=== PATIENT | female | born 1995 | race Caucasian/White ===

== ENCOUNTER 2019-12-20 15:47 | Outpatient (RCR) | payer OTHER, MEDICAID, SELFPAY | END 2020-03-19 23:59 | disposition home or self-care (01) | LOC: ANHLAB 15:47 | PROVIDERS: Visit Provider Advanced Practice Midwife | DX: O46.90 Antepartum hemorrhage, unspecified, unspecified trimester (principal); Z3A.00 Weeks of gestation of pregnancy not specified | CPT/HCPCS: 36415; 85461 ==

== ENCOUNTER 2020-06-17 17:44 | Observation (INO) | payer OTHER, MEDICAID, SELFPAY ==
[2020-06-17 18:01] VITALS: RESP 20; TEMP 37.2
[2020-06-17 19:00] VITALS: BMI 30.6
--- NOTE | 2020-06-17 20:04 | OBADM ---
This patient, Nicki Rubio, admitted to the OB room Labor/Delivery/Recovery 106 for observation. Patient/family oriented to hospital policies and general routines including ID bracelet, bed and alarms, visiting hours, pain management, procedures, bathroom and other care routines, personal items, smoking policy, room service/diet, and visiting hours. Patient/Family are encouraged to report perceived risks to care and to ask questions if they do not understand what they are told or what they should do.
--- NOTE | 2020-06-19 08:10 | PM.OBTRLD ---
OB - Triage/Final Diagnosis Visit Information Comments/Additional reasons for admission: I have assessed the risk for this patient, Nicki Rubio, and determined that she would benefit from observation care. Final Diagnosis (1) False labor: Code(s): O47.9 - False labor, unspecified Status: Acute
== END 2020-06-17 19:47 | disposition home or self-care (01) ==
PROVIDERS: Admitting Provider Obstetrics & Gynecology; Visit Provider Obstetrics & Gynecology
DX: O47.9 False labor, unspecified (principal); Z3A.00 Weeks of gestation of pregnancy not specified
CPT/HCPCS: 84112; G0378; G0379

== ENCOUNTER 2020-06-27 19:48 | Observation (INO) | payer OTHER, MEDICAID, SELFPAY ==
[2020-06-27 20:00] VITALS: BMI 32.1
--- NOTE | 2020-06-27 20:00 | PC.NURSE ---
States contractions since membrane sweep in office today. Contractions increased in intensity since 1730/. SEE obix
--- NOTE | 2020-06-27 22:00 | OBADM ---
This patient, Nicki Rubio, admitted to the OB room Labor/Delivery/Recovery 105 for observation. Patient/family oriented to hospital policies and general routines including ID bracelet, bed and alarms, visiting hours, pain management, procedures, bathroom and other care routines, personal items, smoking policy, room service/diet, and visiting hours. Patient/Family are encouraged to report perceived risks to care and to ask questions if they do not understand what they are told or what they should do.
--- NOTE | 2020-06-27 22:20 | PC.NURSE ---
Pt made no cervical change after 2 hours. Pt rates contraction as 5 throughout visit but states they are like period cramps she has had in past. Pt has been able to talk on phone and with sig. other. Discussed contraction increase in intensity and when to return. Pt verbalized understanding.
== END 2020-06-27 22:20 | disposition home or self-care (01) ==
PROVIDERS: Admitting Provider Obstetrics & Gynecology; PCP Advanced Practice Midwife; Visit Provider Obstetrics & Gynecology
DX: O47.9 False labor, unspecified (principal); Z3A.00 Weeks of gestation of pregnancy not specified
CPT/HCPCS: G0378; G0379

== ENCOUNTER 2020-06-29 20:27 | Outpatient (CLI) | payer OTHER, MEDICAID, SELFPAY ==
[2020-06-29 20:50] VITALS: TEMP 36.9
[2020-06-29 21:18] LABS: Basophils Percent Auto 0.3 % (0.2-1.2); Eosinophils Percent Auto 0.5 % (0-4.4); Hematocrit 31.2 % (37.0-47.0); Immature Granulocyte Absolute 0.05 K/mm3 (0.00-0.031); Immature Granulocyte Percent A 0.6 % (0-0.5); Lymphocytes Absolute Auto 2.16 K/mm3 (0.9-3.2); Lymphocytes Percent Auto 27.1 % (18.3-44.2); Mean Corpuscular HGB Conc 32.1 g/dl (32-36); Mean Corpuscular Hemoglobin 24.7 pg (26-34); Mean Platelet Volume 10.6 fl (7.4-10.4); Monocytes Absolute Auto 0.7 K/mm3 (0.1-0.6); Monocytes Percent Auto 9.2 % (2.6-8.5); Neutrophils Percent Auto 62.3 % (45.5-73.1); Platelet Count Result 292 k/mm3 (150-375); Red Blood Count 4.05 M/mm3 (4.2-5.4); Red Cell Distribution Width 13.8 % (11.5-14.5)
[2020-06-29 21:25] LABS: Add Urine Microscopic? YES; Amorphous Sediment Urine Few; Appearance Urine Cloudy (Clear); Bacteria Urine Trace /hpf; Bilirubin Urine Negative (Negative); Blood Urine Negative (Negative); Color Urine Yellow (Yellow); Glucose Urine UA Negative (Negative); Ketones Urine Negative (Negative); Leukocyte Esterase Ur 3+ LEU/UL (NEGATIVE); Mucus Urine Few /lpf; Nitrate Urine Negative (Negative); Protein Urine 1+ mg/dL (Negative); Specific Grav Ur 1.019 (1.001-1.035); Squamous Epithelial Cell Urine Many /hpf (Few); WBC Urine 21-30 /hpf (0-3)
[2020-06-29 21:27] LABS: Alanine Aminotransferase 9 U/L (4-35); Albumin Level 3.3 g/dL (3.5-5.1); Alkaline Phosphatase 138 U/L (38-126); Anion Gap 5 mmol/L (8-16); Aspartate Amino Transferase 14 U/L (14-36); Bilirubin,Total 0.4 mg/dL (0.2-1.3); Blood Urea Nitrogen 6 mg/dL (7-17); Calcium 8.9 mg/dL (8.4-10.2); Carbon Dioxide 23 mmol/L (22-30); Chloride 107 mmol/L (98-107); Estimated Glomerular Filt Rate > 60; Glucose 118 mg/dL (65-105); Potassium 3.5 mmol/L (3.4-5.0); Sodium 135 mmol/L (137-145); Uric Acid 2.4 mg/dL (2.5-7.5)
== END 2020-06-29 22:35 | disposition home or self-care (01) ==
PROVIDERS: PCP Advanced Practice Midwife; Visit Provider Obstetrics & Gynecology
DX: O13.3 Gestational [pregnancy-induced] hypertension without significant proteinuria, third trimester (principal); Z3A.39 39 weeks gestation of pregnancy
CPT/HCPCS: 36415; 59025; 80053; 81001; 84550; 85025; 87086; 87088

== ENCOUNTER 2020-07-01 16:45 | Outpatient (RCR) | payer OTHER, MEDICAID, SELFPAY ==
[2020-05-30 17:25] VITALS: BP 112/62; PULSE 82
--- NOTE | ~2020-07-01 | US_ITS ---
EXAMINATION: US OB BPP wo non-stress DATE: 05/30/2020 17:24 INDICATION: Gestational diabetes, third trimester TECHNIQUE: Real-time pelvic ultrasound was performed. The interpreting radiologist was not present fo r the study. COMPARISON: None. FINDINGS: There is a single living fetus in vertex presentation. The placenta is anterior. heart rate is 154 beats per minute (bpm). Biophysical profile performed by the technologist: breathing (30 sec sustained breathing in 30 minutes): 2 out of 2 movement (3 gross body movements in 30 minutes): 2 out of 2 tone (one episode of popmkoa-kzuovwvbd-fjhihxb limb movement): 2 out of 2 Amniotic fluid pocket (2 cm): 2 out of 2 Total score: 8 out of 8 IMPRESSION: 1. Single living fetus in vertex presentation. 2. Biophysical profile 8 out of 8. Reviewed, dictated and finalized at location A. STICS ENGINEERING MANAGER
--- NOTE | ~2020-07-01 | US_ITS ---
US OB BPP wo non-stress DATE: 07/01/2020 17:59 INDICATION: Nonreactive nonstress test in office TECHNIQUE: Real-time imaging and Doppler analysis COMPARISON: 05/30/2020 obstetrical ultrasound with biophysical profile FINDINGS: Live rawls intrauterine gestation, fetus in vertex presentation, longitudinal lie. Ante rior placenta. heart rate of 150 bpm. BIOPHYSICAL PROFILE reported by graphics edit technician: breathin out of 2 movement: 2 out of 2 tone: 2 out of 2 Amniotic fluid pocket: 2 out of 2; a 4.1 cm deep amniotic fluid pocket is noted. Total score: 8 out of 8 IMPRESSION: Normal biophysical profile score of 8 out of 8 Reviewed, dictated and finalized at Location A. Reviewed, dictated and finalized at location A. NTURE THERAPIST
[2020-07-01 18:30] VITALS: BP 115/67; PULSE 81
== END 2020-07-03 07:33 | disposition home or self-care (01) ==
LOC: ANHOBOP 16:45
PROVIDERS: Family Provider Pediatrics; Visit Provider Obstetrics & Gynecology
DX: O24.419 Gestational diabetes mellitus in pregnancy, unspecified control (principal); Z3A.34 34 weeks gestation of pregnancy; Z3A.38 38 weeks gestation of pregnancy
CPT/HCPCS: 59025; 76819

== ENCOUNTER 2020-07-02 06:56 | Inpatient (IN) | payer OTHER, MEDICAID, SELFPAY ==
[2020-07-02] VITALS (74 sets, daily range): BP systolic 89–145; BP diastolic 40–111; PULSE 61–226; RESP 16–18; TEMP 36.4–37.3; O2SAT 97–100; BMI 32.1
--- OUTSIDE RECORDS SUMMARY | 2020-07-02 07:01 | XMS_ITS | Encounter Summary ---
:1995 Author Reason for Visit None recorded. Assessment and Plan 1. Gestational diabetes mellitus , class A>2< ? non-stress test Discussion Note: None recorded.Patient educational handouts: No information available. Plan of Care Reminders Provider Appointments None ? ? recorded. Lab None ? ? recorded. Referral None ? ? recorded. Procedures None ? ? recorded. Surgeries None ? ? recorded. Imaging 06/20/2020 [place] Non-stress Test Medications Name Start Date ? ? Humulin N NPH U-100 Insulin (isophane susp) 100 unit/m L subcutaneous ? insulin syringe/0.3ml/31g x 5/16 31g x 5/16 0.3 ml misc ? OneTouch Delica Plus Lancet 33 gauge ? OneTouch Ultra Blue Test Strip ? OneTouch Ultra2 Meter ? ? Medications Administered None recorded. Vitals None recorded. Results Lab Results None recorded. Allergies Code Code System Name Reaction Severity Onset NKDA ? ? ? Problems Name Status Onset Date Source ? Active 01/17/2020 ? Procedures Date
--- OUTSIDE RECORDS SUMMARY | 2020-07-02 07:01 | XMS_ITS ---
:1995 Author Care Team Providers Name Role Phone Kath Esteves Primary Care Provider Unavailable Allergies Code Code System Name Reaction Severity Status Onset NKDA ? Medications Name Status Start Date Stop Date ? ? Flagyl 500 mg tablet Completed ? 02/12/2020 take 4 pills by oral route all at once Humulin N NPH U-100 Insulin Active ? Not available (isophane susp) 100 unit/mL subcutaneous insulin syringe/0.3ml/31g x Active ? Not available 09/22 31g x 09/22 0.3 ml misc ketoconazole 2 % topical cream Completed ? 1 06/26/2019 APPLY TO THE AFFECTED AREA(S) BY TOPICAL ROUTE ONCE DAILY Metrogel Vaginal 0.75 % Completed 01/17/2016 03/09/20 16 insert 1 applicatorful by vaginal route every day at bedtime f or 5 nights NuvaRing 0.12 mg-0.015 mg/24 hr vaginal Completed 03/17/20 18 09/15/2018 insert 1 vaginal ring by vaginal route every month leave in place for 3 weeks, remove for 1 week OneTouch Delica Plus Lancet 33 Active ? N ot available gauge OneTouch Ultra Blue Test Strip Active ? N ot available OneTouch Ultra2 Meter Active ? Not availa ble Ortho Tri-Cyclen (28) 0.18 mg(7)/0.215 mg(7)/0.25 mg(7)-35 m cg tablet Completed 10/19/2012 10/12/2013 take 1 tablet by oral route every day Ortho-Cyclen (28) 0.25 mg-35 mcg tablet Completed 09/16/1906/19/2020 take 1 tablet by oral route every day Active ? N
--- OUTSIDE RECORDS SUMMARY | 2020-07-02 07:01 | XMS_ITS | Encounter Summary ---
:1995 Author Reason for Visit OB visit 37w2d Assessment and Plan 1. Routine care Additional precautionary measu res were taken to minimize potential exposure to the Covid-19 virus during this patien t?s visit, including available hand tool design engineer upon arrive, temperature check and being asked a series of screening questions. All staff wore face coverings during this en counter, as well as provided additional cleaning and sanitizing of all surfaces, including countertops, pens, chairs, door handles, light switches, etc, prior to a nd following the patient?s visit. Discussion Note: None recorded.Patient educational handouts: No information available. Plan of Care Reminders Provider Appointments None ? ? recorded. Lab None ? ? recorded. Referral None ? ? recorded. Procedures None ? ? recorded. Surgeries None ? ? recorded. Imaging None ? ? recorded. Medications Name Start Date ? ? Humulin N NPH U-100 Insulin (isophane susp) 100 unit/m L subcutaneous ? insulin syringe/0.3ml/31g x 16 31g x 516 0.3 ml misc ? OneTouch Delica Plus Lancet 33 gauge ? OneTouch Ultra Blue Test Strip ? OneTouch Ultra2 Meter ? ? Medications Administered None recorded. Vitals Height Weight BMI Blood Pr
--- OUTSIDE RECORDS SUMMARY | 2020-07-02 07:01 | XMS_ITS | Encounter Summary ---
:1995 Author Reason for Visit None recorded. Assessment and Plan 1. condition affecting obs tetrical care of mother ? US, obstetric, biophysical profile + non-stress test Discussion Note: None recorded.Patient educational handouts: No information available. Plan of Care Reminders Provider Appointments None recorded. ? ? Lab None recorded. ? ? Referral None recorded. ? ? Procedures None recorded. ? ? Surgeries None recorded. ? ? Imaging US, Obstetric, [facility] Biophysical Profile + 06/20/2020 Non-stress Test Medications Name Start Date ? [...]
--- OUTSIDE RECORDS SUMMARY | 2020-07-02 07:01 | XMS_ITS | Encounter Summary ---
:1995 Author Reason for Visit OB visit 38w2d Assessment and Plan 1. Routine care Additional precautionary measu res were taken to minimize potential exposure to the Covid-19 virus during this patien t?s visit, including available hand mediator upon arrive, temperature check and being asked [...] unit/m L subcutaneous ? insulin syringe/0.3ml/31g x 09/22 31g x 516 0.3 ml misc ? OneTouch Delica Plus Lancet 33 gauge ? OneTouch Ultra Blue Test Strip ? OneTouch Ultra2 Meter ? ? Medications Administered None recorded. Vitals Height Weight BMI Blood Pr
--- OUTSIDE RECORDS SUMMARY | 2020-07-02 07:01 | XMS_ITS | Encounter Summary ---
[...] recorded. Surgeries None ? ? recorded. Imaging 06/13/2020 [place] Non-stress Test Medications Name Start Date ? [...]
--- OUTSIDE RECORDS SUMMARY | 2020-07-02 07:01 | XMS_ITS | Encounter Summary ---
:1995 Author Reason for Visit OB visit 36w2d GBS today Assessment and Plan 1. Routine care Additional precautionary measu res were taken to minimize potential exposure to the Covid-19 virus during this patien t?s visit, including available hand commercial finance manager upon arrive, temperature check and being asked [...] ? insulin syringe/0.3ml/31g x 16 31g x 16 0.3 ml misc ? OneTouch Delica Plus Lancet 33 gauge ? OneTouch Ultra Blue Test Strip ? OneTouch Ultra2 Meter ? ? Medications Administered None recorded. Vitals Height Weight BMI
--- OUTSIDE RECORDS SUMMARY | 2020-07-02 07:01 | XMS_ITS | Encounter Summary ---
[...] recorded. Surgeries None ? ? recorded. Imaging 06/24/2020 [place] Non-stress Test Medications Name Start Date ? [...]
--- OUTSIDE RECORDS SUMMARY | 2020-07-02 07:01 | XMS_ITS | Encounter Summary ---
[...] recorded. Surgeries None ? ? recorded. Imaging 06/27/2020 [place] Non-stress Test Medications Name Start Date ? [...]
--- OUTSIDE RECORDS SUMMARY | 2020-07-02 07:01 | XMS_ITS | Encounter Summary ---
[...] recorded. Surgeries None ? ? recorded. Imaging 07/01/2020 [place] Non-stress Test Medications Name Start Date ? [...]
--- OUTSIDE RECORDS SUMMARY | 2020-07-02 07:02 | XMS_ITS | Encounter Summary ---
:1995 Author Reason for Visit OB visit 29W2D Assessment and Plan 1. Routine care Discussion Note: None recorded.Patient educational handouts: No [...] None recorded. Vitals Height Weight BMI Blood Pressure 5 ft 5 in 183 lbs 30.5 kg/m2 113/75 mm[Hg] Results Lab Results None recorded. Allergies Code Code System Name Reaction Severity Onset NKDA ? ? ? Problems Name Status Onset Date Source ? Active 01/17/2020 ? Procedures None
--- OUTSIDE RECORDS SUMMARY | 2020-07-02 07:02 | XMS_ITS | Encounter Summary ---
:1995 Author Reason for Visit OB visit OB 35wir2h EDC 07/09/2020 LMP 09/08/2019 Assessment and Plan Assessment Note Patient is __27_weeks . Dis cussed plan. 1. Routine care Discussion Note: None recorded.Patient [...] BMI Blood Pressure 5 ft 5 in 182 lbs 30.3 kg/m2 130/69 mm[Hg] Results Lab Results None recorded. Allergies Code Code System Name Reaction Severity Onset NKDA ? ? ? Problems Name Status O
--- OUTSIDE RECORDS SUMMARY | 2020-07-02 07:02 | XMS_ITS | Encounter Summary ---
[...] recorded. Surgeries None ? ? recorded. Imaging 06/06/2020 [place] Non-stress Test Medications Name Start Date ? [...]
--- OUTSIDE RECORDS SUMMARY | 2020-07-02 07:02 | XMS_ITS | Encounter Summary ---
:1995 Author Reason for Visit OB visit OB 74mol0w EDC 07/09/2020 LMP 09/08/2019 Assessment and Plan Assessment Note Patient is __32_weeks . Dis cussed plan. 1. Routine care [...] unit/m L subcutaneous ? insulin syringe/0.3ml/31g x /16 31g x 5/16 0.3 ml misc ? OneTouch Delica Plus Lancet 33 gauge ? OneTouch Ultra Blue Test Strip ? OneTouch Ultra2 Meter ? ? Medications Administered None recorded. Vitals Height Weight BMI Blood Pressure 5 ft 5 in 182 lbs 30.3 kg/m2 114/65 mm[Hg] Results Lab Results None recorded. Allergies Code Code System Name Reaction Severity Onset NKDA ? ? ? Problems Name Status O
--- OUTSIDE RECORDS SUMMARY | 2020-07-02 07:02 | XMS_ITS | Encounter Summary ---
:1995 Author Reason for Visit None recorded. Assessment and Plan 1. Gestational diabetes mellitus , class A>2< Pt here for insulin teaching p er AD. Pt to start on 5u NPH @ HS. Reviewed insulin with pt and showed pt how to hugo d insulin syringe. Pt instructed how to draw up insulin and where to inject. Pt infor med to buy alcohol swabs to clean vial/skin before injection. Demonstrated to pt how to draw up 5u of insulin. Pt properly completed a return demonstration on how to draw up 5u of insulin and also demonstrated how to draw up different un its of insulin if we end up increasing the dose. Pts questions were answered and pt verbalized understanding and feels comfortable drawing up/injection insulin . Pt will call with any questions. Pt is having issues with insurance getting rxs covered. Called and spoke with Raman at [facility] to see what is wrong and he sa ys that the is incorrect and isn't going through r/t this. Pt is to contract [employer] and correct this so we can send rx. Pt states that when she spoke with Jose koehler before they told her they don't accept her insurance and to try [facility]. Pt wants to see if we send insulin/syringes & glucometer, test stri ps, and lancets to [facility] if it will go through there. Rxs all called into [facility] in [facility] on [facility]. Pt to call with problems getting rxs. Pt will call us on 05/06/2020 to review sugars as we are closed on 05/02 & 05/03/2020. Pt verbalized und erstanding. cecily, CARMINE Discussion Note: None recorded.Patient educational handouts: No information available. Plan of Care Reminders Provider Appointments None ? ? recorded. Lab None ? ? recorded. Referral None
--- OUTSIDE RECORDS SUMMARY | 2020-07-02 07:02 | XMS_ITS | Encounter Summary ---
:1995 Author Reason for Visit None recorded. Assessment and Plan 1. Gestational diabetes mellitus , class A>1< Pt here for diet teaching. Di et teaching completed. Carb counts for meals and snacks reviewed. Pt instructed on how to read nutritional labels and instructed on researching carb counts for me als/snacks. Pt instructed on blood sugar level goals and importance of checking blood sugar and keeping blood sugar log. Pt instructed on high protein low carb diet and provided with food recommendation s. Pt given website to ADA website to lo ok up nutrition ideas. Pt has OB appt on 04/25/2020 and will f/u on BS at that time. Waiting on schd for next year to be opened up at 4 to schd out the rest of pt s NSTs. Pt verbalized understanding. alfredo kowalski RN Discussion Note: None recorded.Patient educational handouts: No [...] ? insulin syringe/0.3ml/31g x 16 31g x 5/16 0.3 ml misc ? OneTouch Delica Plus Lancet 33 gauge ? OneTouch Ultra Blue Test Strip ? OneTouch Ultra2 Meter ? ? Medications Administered None recorded. Sarah
--- OUTSIDE RECORDS SUMMARY | 2020-07-02 07:02 | XMS_ITS | Encounter Summary ---
:1995 Author Reason for Visit None recorded. Assessment and Plan 1. Gestational diabetes mellitus , class A>2< ? US, obstetric, follow-up Discussion Note: None recorded.Patient educational handouts: No information available. Plan of Care Reminders Provider Appointments None ? ? recorded. Lab None ? ? recorded. Referral None ? ? recorded. Procedures None ? ? recorded. Surgeries None ? ? recorded. Imaging US, 05/16/2020 [place] [facility], Follow-up Medications Name Start Date ? ? Humulin [...]
--- OUTSIDE RECORDS SUMMARY | 2020-07-02 07:02 | XMS_ITS | Encounter Summary ---
[...] recorded. Surgeries None ? ? recorded. Imaging 05/30/2020 [place] Non-stress Test Medications Name Start Date ? [...]
--- OUTSIDE RECORDS SUMMARY | 2020-07-02 07:02 | XMS_ITS | Encounter Summary ---
[...] recorded. Surgeries None ? ? recorded. Imaging 06/10/2020 [place] Non-stress Test Medications Name Start Date ? [...]
--- OUTSIDE RECORDS SUMMARY | 2020-07-02 07:02 | XMS_ITS | Encounter Summary ---
[...] recorded. Surgeries None ? ? recorded. Imaging 05/27/2020 [place] Non-stress Test Medications Name Start Date ? [...]
--- OUTSIDE RECORDS SUMMARY | 2020-07-02 07:02 | XMS_ITS | Encounter Summary ---
:1995 Author Reason for Visit OB visit Assessment and Plan 1. Routine care Discussion [...] ft 5 in 182 lbs 30.3 kg/m2 134/64 mm[Hg] Results Lab Results None recorded. Allergies Code Code System Name Reaction Severity Onset NKDA ? ? ? Problems Name Status Onset Date Source ? Active 01/17/2020 ? Procedures Date Name
--- OUTSIDE RECORDS SUMMARY | 2020-07-02 07:02 | XMS_ITS | Encounter Summary ---
[...] recorded. Surgeries None ? ? recorded. Imaging 05/20/2020 [place] Non-stress Test Medications Name Start Date ? [...]
--- OUTSIDE RECORDS SUMMARY | 2020-07-02 07:02 | XMS_ITS | Encounter Summary ---
[...] recorded. Surgeries None ? ? recorded. Imaging 06/03/2020 [place] Non-stress Test Medications Name Start Date ? [...]
--- OUTSIDE RECORDS SUMMARY | 2020-07-02 07:02 | XMS_ITS | Encounter Summary ---
:1995 Author Reason for Visit OB visit Assessment and Plan Assessment Note Patient is ___weeks . Discu ssed plan. 1. Routine care Discussion Note: None [...] BMI Blood Pressure 5 ft 5 in 181 lbs 30.1 kg/m2 130/75 mm[Hg] Results Lab Results None recorded. Allergies Code Code System Name Reaction Severity Onset NKDA ? ? ? Problems Name Status Onset Date Source ?
--- OUTSIDE RECORDS SUMMARY | 2020-07-02 07:02 | XMS_ITS | Encounter Summary ---
[...] ft 5 in 183 lbs 30.5 kg/m2 106/70 mm[Hg] Results Lab Results None recorded. Allergies Code Code System Name Reaction Severity Onset NKDA ? ? ? Problems Name Status Onset Date Source ?
--- OUTSIDE RECORDS SUMMARY | 2020-07-02 07:02 | XMS_ITS | Encounter Summary ---
[...] Surgeries None ? ? recorded. Imaging US, 06/13/2020 [place] [facility], Follow-up Medications Name Start Date ? [...]
--- OUTSIDE RECORDS SUMMARY | 2020-07-02 07:02 | XMS_ITS | Encounter Summary ---
:1995 Author Reason for Visit None recorded. Assessment and Plan 1. condition affecting obs tetrical care of mother ? US, obstetric, biophysical profile Discussion Note: None recorded.Patient educational handouts: No information available. Plan of Care Reminders Provider Appointments None recorded. ? ? Lab None recorded. ? ? Referral None recorded. ? ? Procedures None recorded. ? ? Surgeries None recorded. ? ? Imaging US, Obstetric, [facility] Biophysical Profile 05/30/2020 Medications Name Start Date ? ? Humulin [...] Problems Name Status Onset Date Source ? Acti
[2020-07-02 07:30] LABS: Basophils Percent Auto 0.2 % (0.2-1.2); Eosinophils Absolute Auto 0.1 K/mm3 (0-0.3); Eosinophils Percent Auto 0.6 % (0-4.4); Hematocrit 30.5 % (37.0-47.0); Hemoglobin 9.8 g/dL (12.0-15.0); Immature Granulocyte Absolute 0.06 K/mm3 (0.00-0.031); Immature Granulocyte Percent A 0.7 % (0-0.5); Lymphocytes Absolute Auto 2.51 K/mm3 (0.9-3.2); Lymphocytes Percent Auto 30.9 % (18.3-44.2); Mean Corpuscular HGB Conc 32.1 g/dl (32-36); Mean Corpuscular Hemoglobin 24.4 pg (26-34); Mean Corpuscular Volume 76.1 fl (80-100); Mean Platelet Volume 10.5 fl (7.4-10.4); Monocytes Absolute Auto 0.6 K/mm3 (0.1-0.6); Monocytes Percent Auto 7.8 % (2.6-8.5); Neutrophils Absolute Auto 4.9 K/mm3 (1.3-6.7); Neutrophils Percent Auto 59.8 % (45.5-73.1); Platelet Count Result 302 k/mm3 (150-375); Red Blood Count 4.01 M/mm3 (4.2-5.4); Red Cell Distribution Width 13.7 % (11.5-14.5); White Blood Count 8.1 K/mm3 (4.5-10.0)
[2020-07-02 07:33] LABS: Glucose Point of Care 109 (65-105)
[2020-07-02] MEDS: OXYTOCIN 30 UNITS/NS 500 ML 30 UNITS/500 ML BAG 6 UNITS IV CONT (07:50)
[2020-07-02] MEDS: LACTATED RINGERS 1,000 ML 125 ML IV CONT ×2 (07:51→10:14)
--- NOTE | 2020-07-02 07:58 | LDADM ---
This patient, Nicki Rubio, was admitted to Labor/Delivery/Recovery 104 on 07/02/20 at 06:56. Plans for labor, pain management and were discussed with patient. Patient/family oriented to hospital policies and general routines including ID bracelet, bed and alarms, visiting hours, pain management, procedures, bathroom and other care routines, personal items, smoking policy, room service/diet and guest tray routines, infant security routines, and visiting hours. Patient/Family are encouraged to report perceived risks to care and to ask questions if they do not understand what they are told or what they should do. See OBIX for further documentation.
--- NOTE | 2020-07-02 08:09 | P.HP_ITS ---
Obstetrics - Admit Note Admission Note: 24 y/o G1 @ 39 weeks here for induction of labor. complicated by diet controlled GDM. Last growth u/s 6lb6oz on 06-13. VSS Rare contractions Cervix /-2 AROM small amount of clear odorless fluid Anticipate record reviewed. No pertinent additions to the history and/or any sub sequent changes in the physical findings that are not consistent with the expected course of the were found. Additions to the history and/or subsequent changes in the physical findings foll ow. None.
--- NOTE | 2020-07-02 09:24 | WPDANESEPP ---
Anes - Eval Pre Procedure Procedure: labor epidural Date/Time: 07/02/20 09:24 Surgeon: ollie Pre Op Diagnosis: Induction of Labor Patient Data Age: 24 Gender: F Height: 1.63 m Weight: 85 kg Last Vital Signs Temp 37.2 C 07/02/20 07:54 Pulse 68 07/02/20 09:16 BP 118/68 07/02/20 09:16 Allergies Allergy/AdvReac Type Severity Reaction Status Date / Time No Known Allergies Allergy Unknown Verified 06/26/20 13:44 Home Medications Medication Instructions Recorded Confirmed Type Humulin N NPH U-100 Insulin 13 unit SUBCUT HS 06/26/20 06/27/20 History prenat.vits,zeke,hip-tqxp-vdxab 1 tablet PO DAILY 06/26/20 06/27/20 History Laboratory Tests 07/02/20 07/02/20 07/02/20 07:24 07:24 07:30 WBC 8.1 K/mm3 K/mm3 (4.5-10.0) RBC 4.01 M/mm3 L M/mm3 (4.2-5.4) Hgb 9.8 g/dL L g/dL (12.0-15.0) Hct 30.5 % L % (37.0-47.0) MCV 76.1 fl L fl (80-100) MCH 24.4 pg L pg (26-34) MCHC 32.1 g/dl g/dl (32-36) RDW 13.7 % % (11.5-14.5) Plt Count 302 k/mm3 k/mm3 (150-375) MPV 10.5 fl H fl (7.4-10.4) Immature Gran % (Auto) 0.7 % H % (0-0.5) Neut % (Auto) 59.8 % % (45.5-73.1) Lymph % (Auto) 30.9 % % (18.3-44.2) Mchenry % (Auto) 7.8 % % (2.6-8.5) Eos % (Auto) 0.6 % % (0-4.4) Baso % (Auto) 0.2 % % (0.2-1.2) Lymph # (Auto) 2.51 K/mm3 K/mm3 (0.9-3.2) Mchenry # (Auto) 0.6 K/mm3 K/mm3 (0.1-0.6) Eos # (Auto) 0.1 K/mm3 K/mm3 (0-0.3) Baso # (Auto) 0.0 K/mm3 K/mm3 (0.0-0.1) Abs Immat Gran (auto) 0.06 K/mm3 H K/mm3 (0.00-0.031) Absolute Neuts (auto) 4.9 K/mm3 K/mm3 (1.3-6.7) Absolute Nucleated RBC 0.0 K/mm3 K/mm3 (0.0-0.012) Nucleated RBC % 0.0 % % (0.0-0.2) POC Capillary Glucose 109 mg/dl mg/dl (65-105) RPR Pending Patient hx anesthesia problems: none Family hx anesthesia problems: [facility] Family History Family History (Updated 06/26/20 @ 14:01 by Tamanna Sears RN) Father Diabetes mellitus Sibling Allergy history, peanuts Asthma Grandparent Heart disease Prostate carcinoma Cancer Lupus Other Lupus Social History Social History Smoking status: Current every day smoker Tobacco type: e-cigarettes/vaping Second hand tobacco smoke exposure: Yes Substance use: never Spiritual care concerns: No Exam Day of Procedure 07/02/20 09:24
[2020-07-02 11:10] LABS: Glucose Point of Care 100 (65-105)
--- NOTE | 2020-07-02 13:29 | PM.OBPRVD ---
OB - Delivery Note Procedure Delivery date: 07/02/20 events: Gestational Diabetes Intrapartal events: None Induction method: per pitocin protocol Delivery monitor: external FHT and external uterine Route of delivery: Laceration Description: Perineal - 1st Degree Delivery repair: vicryl Specimen: Yes Quantitative Blood Loss (ml): 74 Anesthesia type: Epidural [place] Baby Date of : 07/02/20 Time of : 13:07 Weeks of gestation at delivery: 39 gender: Male Weight (pounds): 7 Weight (ounces): 10 presentation: vertex position: Left Occiput Anterior Placenta delivery description: Spontaneous cord vessel description: Delayed Cord Clamping score one minute: 9 score five minutes: 9 Narrative: Mother and baby in stable condition. Cord gasses collected by staff.
[2020-07-02] MEDS: OXYTOCIN 30 UNITS/NS 500 ML 30 UNITS/500 ML BAG 125 UNITS IV CONT (13:42)
[2020-07-02] MEDS: IBUPROFEN 600 MG TABLET PO ×2 (15:59→22:46)
[2020-07-02] MEDS: DOCUSATE SODIUM 100 MG CAPSULE PO (16:00)
[2020-07-03 04:50] VITALS: BP 104/56; PULSE 67; RESP 16; TEMP 36.2; O2SAT 100
[2020-07-03] MEDS: IBUPROFEN 600 MG TABLET PO ×4 (04:50→22:34)
[2020-07-03 05:42] LABS: Glucose Point of Care 117 (65-105)
[2020-07-03 06:50] LABS: Hematocrit 27.5 % (37.0-47.0); Hemoglobin 8.6 g/dL (12.0-15.0)
--- NOTE | 2020-07-03 07:25 | P.PNOB_ITS ---
OB - PN: Subj Subjective Date/time seen: 07/03/20 07:25 Patient comments: no complaints baby status: doing well OB - PN: Obj Data Labs CBC & Chem 7: 07/03/20 04:55 Labs: Laboratory Results - last 24 hr 07/02/20 07/02/20 07/02/20 07:24 07:24 07:30 WBC 8.1 RBC 4.01 L Hgb 9.8 L Hct 30.5 L MCV 76.1 L MCH 24.4 L MCHC 32.1 RDW 13.7 Plt Count 302 MPV 10.5 H Immature Gran % (Auto) 0.7 H Neut % (Auto) 59.8 Lymph % (Auto) 30.9 [place] % (Auto) 7.8 Eos % (Auto) 0.6 Baso % (Auto) 0.2 Lymph # (Auto) 2.51 [place] # (Auto) 0.6 Eos # (Auto) 0.1 Baso # (Auto) 0.0 Abs Immat Gran (auto) 0.06 H Absolute Neuts (auto) 4.9 Absolute Nucleated RBC 0.0 Nucleated RBC % 0.0 POC Capillary Glucose 109 Blood Type A Positive Antibody Screen Negative 07/02/20 07/03/20 07/03/20 11:07 04:55 05:02 WBC RBC Hgb 8.6 L Hct 27.5 L MCV MCH MCHC RDW Plt Count MPV Immature Gran % (Auto) Neut % (Auto) Lymph % (Auto) [place] % (Auto) Eos % (Auto) Baso % (Auto) Lymph # (Auto) [place] # (Auto) Eos # (Auto) Baso # (Auto) Abs Immat Gran (auto) Absolute Neuts (auto) Absolute Nucleated RBC Nucleated RBC % POC Capillary Glucose 100 117 H Blood Type Antibody Screen OB - PN A/P Plan day: 1 Plan: routine care Time Spent With Patient Time: Total time spent is greater than 50% in coordination of care (as documented) at patient's floor/unit and/or counseling patient: Exam Const: General: cooperative Nutritional Appearance: average body habitus Limitations: no limitations Psych: Affect: normal affect Attitude: cooperative Thought process: Normal thought process present Thought content: Yes Normal thought content p resent Insight: Good insight present (Psych) Judgement: Good judgement present (Psych)
--- NOTE | 2020-07-03 07:34 | WPDANLDPN2 ---
Anes-Prog Note L&D Date/Time: 07/03/20 07:34 Comfortable throughout: labor and delivery Neuraxial method: epidural Epidural/Spinal procedure site: clean & non-tender Neuro status: Neuro function grossly intact. Cardiovascular status: normal Respiratory status: normal Airway patency: baseline Mental status: baseline Post-Op hydration status: normal Vital Signs: Last Vital Signs Temp 36.2 C L 07/03/20 04:50 Pulse 67 07/03/20 04:50 Resp 16 07/03/20 04:50 BP 104/56 L 07/03/20 04:50 Pulse Ox 100 07/03/20 04:50 Pain score (VAS): 0 I/O: Intake & Output 07/02/20 07/02/20 07/03/20 15:59 23:59 07:59 Intake Total 1000 Balance 1000 Post-procedural complaints: none Patient feedback: Patient satisfied with anesthetic care.
[2020-07-03 08:10] VITALS: BP 87/49; PULSE 65; RESP 18; TEMP 36.8; O2SAT 99
[2020-07-03] MEDS: DOCUSATE SODIUM 100 MG CAPSULE PO ×2 (08:13→16:22)
[2020-07-03] MEDS: POLYSACCHARIDE IRON COMPLEX 150 MG CAPSULE PO ×2 (08:13→16:22)
[2020-07-03 11:32] VITALS: BP 115/61; PULSE 84; RESP 22; TEMP 36.5; O2SAT 99
[2020-07-03 13:09] LABS: Rapid Plasma Reagin Non-Reactive (NonReactive)
[2020-07-03 19:00] VITALS: BP 113/63; PULSE 77; RESP 18; RESP 20; TEMP 36.8; O2SAT 98
[2020-07-03] MEDS: MULTIVIT/MIN/PREN/FOL AC/IRON TABLET 1 TAB PO (20:13)
[2020-07-03] MEDS: ACETAMINOPHEN 325 MG TABLET 650 MG PO (20:15)
[2020-07-04 07:50] VITALS: BP 120/62; PULSE 68; RESP 16; TEMP 36.3; O2SAT 99
--- NOTE | 2020-07-04 07:57 | PM.OBPNVD ---
OB - PN: Subj Subjective Date/time seen: 07/04/20 07:57 Patient comments: no complaints baby status: doing well OB - PN: Obj Data Labs CBC & Chem 7: 07/03/20 04:55 Labs: Laboratory Results - last 24 hr 07/02/20 07:24 RPR Non-reactive OB - PN A/P Plan day: 2 Plan: routine care and discharge home (F/U in 4 weeks) Comments: Fasting blood sugar elevated yesterday. Pt states she had pepsi a few hours before which would explain elevation. She has also already had food/drink this am. She will check a couple fasting blood sugars at home and let me know if they are above 95. I have also instructed her to do a 2 hour gtt 2 months post . Time Spent With Patient Time: Total time spent is greater than 50% in coordination of care (as documented) at patient's floor/unit and/or counseling patient: Time with patient: less than 15 minutes Review of Systems Review of Systems: All systems reviewed & are unremarkable except as noted in HPI and below Exam Narrative: Exam Narrative: Fundus firm and vaginal flow controlled. No lower ext redness, warmth, or edema. Negative homans. Const: General: comfortable Chest: Breast/axilla inspection: normal inspection of the breasts Resp: Effort & Inspection: normal respiratory effort Cardio: Rate: regular rate GI: GI Palp: Yes Soft to palpation Psych: Appearance: grossly normal Affect: normal affect Attitude: cooperative Thought content: Yes Normal thought content present Judgement: Good judgement present (Psych)
--- NOTE | 2020-07-04 08:06 | PM.OBDSVD ---
DS: Admitting Diagnosis Admitting Diagnosis Admitting Diagnosis: Labor DS: Discharge Diagnosis Discharge Diagnosis (1) Vaginal delivery: Code(s): O80 - Encounter for full-term uncomplicated delivery Status: Acute OB - DS: Summary OB Procedures : None OB Procedures Intrapartum: Spontaneous Vag Delivery OB Procedures: : None Time Spent with Patient Time attestation: Total time spent providing and/or coordinating discharge services: DS: Data Data Completed and Pending Pending studies at discharge: Pending at discharge 07/02/20 13:49 Surgical [PTH] Routine Labs on day of discharge: Labs from last 24 hours 07/02/20 07:24 RPR Non-reactive Discharge Plan Discharge Attending physician on discharge: Kath Esteves Discharging Clinician: Kath Esteves Patient Disposition: Home, Self-Care Activity: pelvic rest Diet: as tolerated Patient Instructions: Antibiotic Form Stand Alone Forms: General Discharge Information Follow-up/Referrals: Kath Esteves CNM [Primary Care Provider] - 4 Weeks Discharge Medications: New polysaccharide iron complex 150 mg iron Capsule 150 mg PO BIDWM Qty: 60 RF: 0 Continued prenat.vits,zeke,tyz-loxe-zqglu Tablet 1 tablet PO DAILY RF: 0 Discontinued Humulin N NPH U-100 Insulin 100 unit/mL Suspension 13 unit SUBCUT HS RF: 0 Date of admission: 07/02/20 06:56 Primary Care Provider: Kath Esteves Admitting Provider: Mabel Santana Attending physician on admission: Mabel Santana Condition: Stable
--- NOTE | 2020-07-04 09:17 | PC.NURSE ---
Consulted with patient, reviewed infant feeding cues, frequencies, duration of feedings, feeding elimination flow sheet, and signs of adequate intake. Demonstrated stimulation techniques to wake infant for feeding. at breast with nipple shield. Reviewed positioning/alignment, holding breast and asymmetrical latch on. Encouraged mom to keep baby aligned with nipple and to support head during feeding. Infant was able to latch correctly. nursed eagerly, with steady draws and occasional swallowing noted. Reviewed signs of a correct latch, effective nursing and suck swallow ratio. Infant was able to maintain latch without discomfort to mother. Nipple care reviewed. Instructed mother to call out for RN assistance if she is unable to latch for feeding or she has discomfort with nursing. Instructed feeding should be initiated three hours from start of last feeding or if feeding cues are noted before. Mother voiced understanding of information shared. Mother verbalizes she is able to independently latch with appropriate positioning/alignment. She states she has some nipple discomfort, is feeding as required and waking to feed if needed. has had 6 effective feedings in the past 24 hours and is being supplemented with formula after feedings, and is currently meeting outcomes for weight, output and jaundice. Mom educated to feed 8-12 times in 24 hours waking as needed. Appt tomorrow to have jaundice rechecked. Mother states she feels confident to continue effective at home. Reviewed transition to breast milk, signs of adequate intake, and engorgement/relief. Instructed to call ICP if intake/output less than required. Reviewed community resources on the [facility] website and in the Mom/Baby guide. Information on outpatient services provided. Mother has no further questions at this time. Breast pump being used after each feeding at breast. Instructions given on breast pump care and usage, pumping schedule, nipple care, and collection and storage of breast milk. Encouraged [id number], breast massage and manual expression to stimulate supply. Patient states she has the correct flange size, placement and draw. Encouraged mom to call when pumping if she would like to have it assessed. Patient verbalizes and demonstrates understanding of instructions.
[2020-07-04] MEDS: POLYSACCHARIDE IRON COMPLEX 150 MG CAPSULE PO (09:20)
[2020-07-04] MEDS: IBUPROFEN 600 MG TABLET PO (09:20)
[2020-07-04] MEDS: DOCUSATE SODIUM 100 MG CAPSULE PO (09:20)
[2020-07-04] MEDS: ACETAMINOPHEN 325 MG TABLET 650 MG PO (10:32)
[2020-07-05 09:49] VITALS: BP 132/86; PULSE 71; RESP 20; TEMP 36.6; O2SAT 98
== END 2020-07-04 11:24 | disposition home or self-care (01) | DRG 807 ==
LOC: ANHLDR 07:00 → ANHOB2 15:41
PROVIDERS: Admitting Provider Obstetrics & Gynecology; PCP Advanced Practice Midwife; Visit Provider Obstetrics & Gynecology
DX: O24.420 Gestational diabetes mellitus in childbirth, diet controlled (principal); Z37.0 Single live birth; Z3A.39 39 weeks gestation of pregnancy; O70.0 First degree perineal laceration during delivery; O99.344 Other mental disorders complicating childbirth; F41.9 Anxiety disorder, unspecified
CPT/HCPCS: 36415; 59025; 76819; 80053; 81001; 82948; 84550; 85014; 85018; 85025; 86592; 86850; 86900; 86901; 87086; 87088; 88307; A9270; J2590; J2795; J7120

== ENCOUNTER 2021-03-12 11:51 | Emergency (ER) | payer BC, SELFPAY ==
[2021-03-12 11:59] VITALS: BP 106/59; PULSE 69; RESP 16; TEMP 36.9; O2SAT 99
--- NOTE | 2021-03-12 12:17 | ED.URI ---
HPI - URI/Sore Throat General Chief Complaint: Upper Respiratory Infection Stated Complaint: sore throat Source: patient and RN notes reviewed Mode of arrival: ambulatory Limitations: no limitations History of Present Illness HPI Narrative: Claudio is a 25-year-old female patient who ambulated into the [facility]. With complaint of sore throat starting yesterday. Start states that is worse today states that she saw pus pocket this morning. Rates pain 8 out of 10. Patient is currently breast-feeding. Related Data Home Medications Medication Instructions Recorded Confirmed No Home Medications 03/12/21 03/12/21 Allergies Allergy/AdvReac Type Severity Reaction Status Date / Time No Known Allergies Allergy Unknown Verified 06/26/20 13:44 Review of Systems Review of Systems: CONSTITUTIONAL: + body aches, fever, chills, or sweats. EYES: Denies visual changes, redness, or discharge. ENT: Denies rhinorrhea, +congestion,+ sore throat, left ear pain. CARDIOVASCULAR: Denies chest pain, palpitations, or edema. RESPIRATORY: Denies cough or dyspnea. GASTROINTESTINAL: Denies abdominal pain, nausea, vomiting, or diarrhea. GENITOURINARY: Denies dysuria or hematuria. SKIN: Denies rash, itching, or wounds. MUSCULOSKELETAL: Denies back pain, joint pain, or myalgia. NEUROLOGIC: Denies headache, numbness, tingling, or weakness. PSYCH: Denies depression or anxiety. All systems reviewed & are unremarkable except as noted in HPI and below PMFSH Family History Family History Father Diabetes mellitus Sibling Allergy history, peanuts Asthma Grandparent Heart disease Prostate carcinoma Cancer Lupus Other Lupus Social History Social History Smoking status: Current every day smoker Tobacco type: e-cigarettes/vaping Second hand tobacco smoke exposure: Yes Substance use: never Spiritual care concerns: No Comments At time of signature, I have reviewed and agree with nursing past medical, surgical, social and family history unless otherwise noted. Please see nursing chart for further information. There is no relevant family history pertinent to the presenting complaint Exam Narrative: GENERAL: Well-appearing, well-nourished, and in no acute distress. HEAD: Normocephalic, atraumatic. EYES: EOMI. No redness or drainage. Conjunctivae normal. ENT: Mucous membranes pink and moist. Nasal membranes are erythematous with clear drainage. TMs dull with mild bulging, no erythema. Posterior pharynx erythemic with moderate edema no exudate noted Uvula midline. NECK: Normal AROM. Supple. left anterior cervical lymphadenopathy. CHEST: No respiratory distress. Clear to auscultation. MUSCULOSKELETAL: No bony tenderness. EXTREMITIES: Normal range of motion. No edema. SKIN: Warm, dry, no rash. Capillary refill normal. Normal skin turgor. NEURO: No focal deficits. Alert and oriented x3. Gait steady. PSYCH: Normal affect. No signs of depression or anxiety. Course Vital Signs Vital signs: Vital Signs Temperature 36.9 C 03/12/21 11:59 Pulse Rate 69 03/12/21 11:59 Respiratory Rate 16 03/12/21 11:59 Blood Pressure 106/59 L 03/12/21 11:59 Pulse Oximetry 99 03/12/21 11:59 Temperature 36.9 C 03/12/21 11:59 Pulse Rate 69 03/12/21 11:59 Respiratory Rate 16 03/12/21 11:59 Blood Pressure 106/59 L 03/12/21 11:59 Pulse Oximetry 99 03/12/21 11:59 MDM - URI/Sore Throat MDM Narrative Medical decision making narrative: Patient's throat is erythematous without exudate. Moderate edema is noted. Patient also has postnasal drainage, tympanic membrane's are dull without erythema with minimal bulging. Differential Diagnosis Differential diagnosis: Likely upper respiratory infection, otitis media, viral infection and pharyngitis Medical Records Attestation: I reviewed the patient's medica
== END 2021-03-12 12:31 | disposition home or self-care (01) ==
PROVIDERS: Emergency Provider Nurse Practitioner Family
DX: J02.9 Acute pharyngitis, unspecified (principal); F17.290 Nicotine dependence, other tobacco product, uncomplicated
CPT/HCPCS: 87081; 87880; 99213; G0463

== ENCOUNTER 2022-01-24 11:28 | Emergency (ER) | payer BC, SELFPAY ==
[2022-01-24 11:41] VITALS: BP 114/69; PULSE 63; RESP 16; TEMP 37.1; O2SAT 100
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
== END 2022-01-24 11:49 | disposition home or self-care (01) ==
PROVIDERS: Emergency Provider Nurse Practitioner Family
DX: S70.11XA Contusion of right thigh, initial encounter (principal); X58.XXXA Exposure to other specified factors, initial encounter; F17.290 Nicotine dependence, other tobacco product, uncomplicated; Z86.16 Personal history of COVID-19
CPT/HCPCS: 99212; G0463

== ENCOUNTER 2022-10-26 19:53 | Observation (INO) | payer OTHER, BC, SELFPAY ==
[2022-10-26 22:38] VITALS: BMI 30.2
--- NOTE | 2022-11-15 20:46 | PM.OBTRLD ---
OB - Triage/Final Diagnosis Visit Information Comments/Additional reasons for admission: I have assessed the risk for this patient, Nicki Rubio, and determined that she would benefit from observation care. Final Diagnosis (1) Amniotic fluid leaking: Code(s): O42.90 - Premature rupture of membranes, unspecified as to length of time between rupture and onset of labor, unspecified weeks of gestation Status: Acute
== END 2022-10-26 22:44 | disposition home or self-care (01) ==
PROVIDERS: Admitting Provider Obstetrics & Gynecology; Visit Provider Obstetrics & Gynecology
DX: O42.913 Preterm premature rupture of membranes, unspecified as to length of time between rupture and onset of labor, third trimester (principal); Z3A.36 36 weeks gestation of pregnancy
CPT/HCPCS: G0378; G0379

== ENCOUNTER 2022-11-09 05:01 | Inpatient (IN) | payer OTHER, BC, SELFPAY ==
[2022-11-09] VITALS (99 sets, daily range): BP systolic 80–120; BP diastolic 45–76; PULSE 33–109; RESP 16–18; TEMP 36.6–37.3; O2SAT 88–100; BMI 30.2
--- NOTE | 2022-11-09 05:25 | LDADM ---
This patient, Nicki Rubio, was admitted to Labor/Delivery/Recovery 103 on 11/09/22 at 05:01. Plans for labor, pain management and were discussed with patient. Patient/family oriented to hospital policies and general routines including ID bracelet, bed and alarms, visiting hours, pain management, procedures, bathroom and other care routines, personal items, smoking policy, room service/diet and guest tray routines, infant security routines, and visiting hours. Patient/Family are encouraged to report perceived risks to care and to ask questions if they do not understand what they are told or what they should do. See [facility]BIX for further documentation.
[2022-11-09 05:36] LABS: Basophils Percent Auto 0.3 % (0.2-1.2); Eosinophils Absolute Auto 0.1 K/mm3 (0-0.3); Eosinophils Percent Auto 0.7 % (0-4.4); Hematocrit 28.8 % (37.0-47.0); Immature Granulocyte Absolute 0.04 K/mm3 (0.00-0.031); Immature Granulocyte Percent A 0.6 % (0-0.5); Lymphocytes Percent Auto 40.4 % (18.3-44.2); Mean Corpuscular HGB Conc 31.3 g/dl (32-36); Mean Corpuscular Hemoglobin 23.5 pg (26-34); Mean Corpuscular Volume 75.2 fl (80-100); Mean Platelet Volume 11.2 fl (7.4-10.4); Monocytes Absolute Auto 0.6 K/mm3 (0.1-0.6); Monocytes Percent Auto 8.5 % (2.6-8.5); Neutrophils Absolute Auto 3.6 K/mm3 (1.3-6.7); Neutrophils Percent Auto 49.5 % (45.5-73.1); Platelet Count Result 286 k/mm3 (150-375); Red Blood Count 3.83 M/mm3 (4.2-5.4); Red Cell Distribution Width 14.4 % (11.5-14.5); White Blood Count 7.2 K/mm3 (4.5-10.0)
[2022-11-09 05:47] LABS: Alanine Aminotransferase 15 U/L (6-35); Albumin Level 3.6 g/dL (3.5-5.1); Alkaline Phosphatase 104 U/L (38-126); Anion Gap 9 mmol/L (8-16); Aspartate Amino Transferase 21 U/L (14-36); Blood Urea Nitrogen 6 mg/dL (7-17); Calcium 9.9 mg/dL (8.4-10.2); Carbon Dioxide 25 mmol/L (22-30); Chloride 100 mmol/L (98-107); Estimated CRCL calculation 174 ml/min; Estimated Glomerular Filt Rate > 60; Glucose 93 mg/dL (65-110); Potassium 3.7 mmol/L (3.4-5.0); Sodium 134 mmol/L (137-145)
[2022-11-09] MEDS: OXYTOCIN 30 UNITS/NS 500 ML 30 UNITS/500 ML BAG IV CONT (05:52)
[2022-11-09] MEDS: LACTATED RINGERS 1,000 ML 125 ML IV CONT ×3 (05:52→07:51)
--- NOTE | 2022-11-09 07:18 | WPDANESEPP ---
Anes - Eval Pre Procedure Procedure: labor pain management Date/Time: 11/09/22 07:18 Surgeon: Mitchel Preop Diagnosis: Pain during labor Pre Op Diagnosis: Induction of Labor Patient Data Age: 27 Gender: F Height: 1.63 m Weight: 80 kg Last Vital Signs Temp 98 F 11/09/22 05:21 Pulse 76 11/09/22 07:00 BP 116/61 11/09/22 07:00 O2 Del Method Room Air 11/09/22 05:24 Allergies Allergy/AdvReac Type Severity Reaction Status Date / Time No Known Allergies Allergy Unknown Verified 01/24/22 11:34 Home Medications Medication Instructions Recorded Confirmed Type prenat.vits,zeke,vrx-lnmq-mwcps 1 tablet PO DAILY 10/23/22 11/09/22 History Laboratory Tests 11/09/22 11/09/22 05:28 05:29 WBC 7.2 K/mm3 (4.5-10.0) RBC 3.83 L M/mm3 (4.2-5.4) Hgb 9.0 L g/dL (12.0-15.0) Hct 28.8 L % (37.0-47.0) MCV 75.2 L fl (80-100) MCH 23.5 L pg (26-34) MCHC 31.3 L g/dl (32-36) RDW 14.4 % (11.5-14.5) Plt Count 286 k/mm3 (150-375) MPV 11.2 H fl (7.4-10.4) Immature Gran % (Auto) 0.6 H % (0-0.5) Neut % (Auto) 49.5 % (45.5-73.1) Lymph % (Auto) 40.4 % (18.3-44.2) [place] % (Auto) 8.5 % (2.6-8.5) Eos % (Auto) 0.7 % (0-4.4) Baso % (Auto) 0.3 % (0.2-1.2) Lymph # (Auto) 2.90 K/mm3 (0.9-3.2) [place] # (Auto) 0.6 K/mm3 (0.1-0.6) Eos # (Auto) 0.1 K/mm3 (0-0.3) Baso # (Auto) 0.0 K/mm3 (0.0-0.1) Abs Immat Gran (auto) 0.04 H K/mm3 (0.00-0.031) Absolute Neuts (auto) 3.6 K/mm3 (1.3-6.7) Absolute Nucleated RBC 0.0 K/mm3 (0.0-0.012) Nucleated RBC % 0.0 % (0.0-0.2) Sodium 134 L mmol/L (137-145) Potassium 3.7 mmol/L (3.4-5.0) Chloride 100 mmol/L (98-107) Carbon Dioxide 25 mmol/L (22-30) Anion Gap 9 mmol/L (8-16) BUN 6 L mg/dL (7-17) Creatinine 0.40 L mg/dL (0.7-1.0) Estim Creat Clear Calc 174 ml/min Estimated GFR > 60 (59 - ) Glucose 93 mg/dL (65-110) Calcium 9.9 mg/dL (8.4-10.2) Total Bilirubin 1.0 mg/dL (0.2-1.3) AST 21 U/L (14-36) ALT 15 U/L (6-35) Alkaline Phosphatase 104 U/L (38-126) Total Protein 7.0 g/dL (6.3-8.2) Albumin 3.6 g/dL (3.5-5.1) RPR Pending Blood Type A Positive Antibody Screen Negative Patient hx anesthesia problems: none Family hx anesthesia problems: none Results Review: All pre-operative results and documents have been reviewed as part of the pre-operative evaluation. [facility] Past Medical History Medical History (Updated 11/09/22 @ 07:17 by Joceline Toro CRNA) Anxiety Eczema Family History Family History Father Diabetes mellitus Sibling Allergy history, peanuts Asthma Grandparent Heart disease Prostate carcinoma Cancer Lupus Other Lupus Social History Social History Smoking status: Current every day smoker Tobacco type: e-cigarettes/vaping Second hand tobacco smoke exposure: Yes Substance use: never Lack of Transportation: No Lack of Food: Never True Current Housing: I Have Housing Concerned About Future Housing: No Difficulty Paying Gas/Electric Bills: No Difficulty Paying for Meds: No Currently Unemployed: No Education: Trade/Vocational Certificate Difficulty w/ Childcare or Family Care: No Spiritual care concerns: No Exam Day of Procedure 11/09/22 07:18
--- NOTE | 2022-11-09 08:10 | PM.IMHP ---
H&P: HPI History of Present Illness Date/Time: 11/09/22 08:10 pt admitted for IOL. Pt is a at 38.6 weeks gestation. complicated by GDMA-1. Pt has been noncompliant in checking blood sugars and in the office stopped bringing in logs at 09/30/22 visit. has also been complicated by anxiety, anemia. anxiety managed with zoloft 50 mg. Pt encouraged vape cessation during her . Chief Complaint: IOL Review of Systems Review of Systems: All systems reviewed & are unremarkable except as noted in HPI and below PMFSH Past Medical History Medical History (Updated 11/09/22 @ 08:18 by Ning Rubio CNM) Anxiety Eczema Family History Family History Father Diabetes mellitus Sibling Allergy history, peanuts Asthma Grandparent Heart disease Prostate carcinoma Cancer Lupus Other Lupus Social History Social History Smoking status: Current every day smoker Tobacco type: e-cigarettes/vaping Second hand tobacco smoke exposure: Yes Substance use: never Lack of Transportation: No Lack of Food: Never True Current Housing: I Have Housing Concerned About Future Housing: No Difficulty Paying Gas/Electric Bills: No Difficulty Paying for Meds: No Currently Unemployed: No Education: Trade/Vocational Certificate Difficulty w/ Childcare or Family Care: No Spiritual care concerns: No Meds Home Medications and Allergies Home Medications Medication Instructions Recorded Confirmed Type prenat.vits,zeke,jpe-stiw-batud 1 tablet PO DAILY 10/23/22 11/09/22 History Allergies Allergy/AdvReac Type Severity Reaction Status Date / Time No Known Allergies Allergy Unknown Verified 01/24/22 11:34 Vital Signs Vital Signs - 24 hr 11/09/22 05:21 11/09/22 05:30 11/09/22 05:45 Temperature 36.6 C Pulse Rate 90 84 86 Blood Pressure 119/76 106/68 107/64 Pulse Oximetry Oxygen Delivery 11/09/22 06:00 11/09/22 06:15 11/09/22 06:30 Temperature Pulse Rate 79 85 80 Blood Pressure 111/61 118/64 110/67 Pulse Oximetry Oxygen Delivery 11/09/22 07:00 11/09/22 07:23 11/09/22 07:23 Temperature Pulse Rate 76 Blood Pressure 116/61 Pulse Oximetry 100 100 Oxygen Delivery 11/09/22 07:28 11/09/22 07:29 11/09/22 07:30 Temperature Pulse Rate 80 Blood Pressure 118/72 Pulse Oximetry 100 95 Oxygen Delivery 11/09/22 07:33 11/09/22 07:34 11/09/22 07:36 Temperature Pulse Rate 80 79 Blood Pressure 116/68 102/69 Pulse Oximetry 100 Oxygen Delivery 11/09/22 07:39 11/09/22 07:42 11/09/22 07:44 Temperature Pulse Rate 66 82 Blood Pressure 109/60 102/66 Pulse Oximetry 100 100 Oxygen Delivery 11/09/22 07:45 11/09/22 07:49 11/09/22 07:51 Temperature Pulse Rate 64 80 69 Blood Pressure 116/62 120/63 108/59 L Pulse Oximetry 100 Oxygen Delivery 11/09/22 07:52 11/09/22 07:56 11/09/22 07:57 Temperature Pulse Rate 71 67 Blood Pressure 103/56 L 108/60 Pulse Oximetry 100 100 Oxygen Delivery 11/09/22 08:00 11/09/22 08:02 11/09/22 08:04 Temperature Pulse Rate 66 100 Blood Pressure 103/61 102/53 L Pulse Oximetry 100 Oxygen Delivery 11/09/22 08:07 11/09/22 05:24 Temperature Pulse Rate 73 Blood Pressure 97/51 L Pulse Oximetry 100 Oxygen Delivery Room Air Exam Const: General: cooperative, healthy appearing and comfortable Resp: Effort & Inspection: normal respiratory effort Cardio: Rate: regular rate Rhythm: regular rhythm GI: Other: gravid, soft : Other: SVE 3/70/-2 AROM small amount of clear, odorless fluid H&P: Results Labs Labs: Short CBC 11/09/22 Range/Units 05:29 WBC 7.2 (4.5-10.0) K/mm3 Hgb 9.0 L (12.0-15.0) g/dL Hct 28.8 L (37.0-47.0) % Plt Count 286 (150-375) k/mm3 BMP
[2022-11-09 10:53] LABS: Glucose Point of Care 82 mg/dl (65-105)
--- NOTE | 2022-11-09 12:08 | PM.OBPRVD ---
OB - Delivery Note Procedure Delivery date: 11/09/22 Procedure: Events: Gestational Diabetes Induction method: AROM and Per Pitocin Protocol Delivery monitor: External FHT and External Uterine Route of delivery: Laceration Description: None Specimen: No Quantitative Blood Loss (ml): 50 Anesthesia type: Epidural Disposition: Floor Baby Date of : 11/09/22 Time of : 11:52 Weeks of gestation at delivery: 38 gender: Female Weight (pounds): 8 Weight (ounces): 9 presentation: vertex position: Left Occiput Anterior Placenta delivery description: Spontaneous Cord Vessel Description: 3 Vessels, Clamped/Cut and Delayed Cord Clamping score one minute: 8 score five minutes: 9 Narrative: mother and baby skin to skin in stable condition
[2022-11-09] MEDS: OXYTOCIN 30 UNITS/NS 500 ML 30 UNITS/500 ML BAG 125 UNITS IV CONT (12:36)
[2022-11-09] MEDS: WITCH HAZEL 40 PADS 1 PAD TOPICAL (14:18)
[2022-11-09] MEDS: IBUPROFEN 600 MG TABLET PO ×2 (14:18→20:33)
[2022-11-09] MEDS: BENZOCAINE 20% AER SPR (*SP) 56 GM CAN 1 SPRAY TOPICAL (14:18)
--- NOTE | 2022-11-09 15:10 | PC.NURSE ---
Patient transferred to post room #283 via [id number]. Support person present. Oriented to unit, room, information board, rooming in, admission packet and security measures. Patient verbalizes understanding.
--- NOTE | 2022-11-09 15:57 | PC.NURSE ---
1305 - Introductions were made and mother is as she has experience with her oldest child who is 2.5 years old. Mother is confident and is on/off without pain. Mother voiced understanding of calling for assistance if she has any questions or concerns.
[2022-11-09 17:14] LABS: Rapid Plasma Reagin Non-Reactive (NonReactive)
[2022-11-10] MEDS: ACETAMINOPHEN 325 MG TABLET 650 MG PO ×2 (00:40→17:28)
[2022-11-10 04:39] VITALS: BP 94/52; PULSE 74; RESP 18; TEMP 36.5; O2SAT 100
[2022-11-10 05:18] LABS: Hematocrit 26.2 % (37.0-47.0)
[2022-11-10] MEDS: IBUPROFEN 600 MG TABLET PO ×3 (07:14→19:58)
[2022-11-10] MEDS: POLYSACCHARIDE IRON COMPLEX 150 MG CAPSULE PO ×2 (07:14→14:25)
[2022-11-10] MEDS: DOCUSATE SODIUM 100 MG CAPSULE PO ×2 (07:15→14:25)
[2022-11-10] MEDS: MULTIVIT/MIN/PREN/FOL AC/IRON TABLET 1 TAB PO (07:15)
[2022-11-10 08:05] VITALS: BP 110/68; PULSE 65; RESP 18; TEMP 36.8; O2SAT 100
--- NOTE | 2022-11-10 10:34 | PM.OBPNVD ---
OB - PN: Subj Subjective Date/time seen: 11/10/22 10:34 Patient comments: no complaints and pain well controlled baby status: doing well and nursing well Narrative: Hgb 8.0, requesting IV iron. OB - PN: Obj Data Labs 11/10/22 04:10 11/09/22 05:29 Labs: Laboratory Results - last 24 hr 11/09/22 11/09/22 11/10/22 05:28 10:49 04:10 Hgb 8.0 L Hct 26.2 L POC Capillary Glucose 82 RPR Non-reactive OB - PN A/P Plan day: 1 Plan: routine care Comments: IV iron today and tomorrow. circ tomorrow Time Spent With Patient Time: Total time spent is greater than 50% in coordination of care (as documented) at patient's floor/unit and/or counseling patient: Time with patient: less than 15 minutes Exam Narrative: NAD abdomen soft, nontender, fundus firm below the umbilicus Extremities nontender, 1+ edema
[2022-11-10] MEDS: IRON SUCROSE COMPLEX 200 MG in SODIUM CHLORIDE 0.9% IV 50 ML 120 MG IVPB (12:35)
--- NOTE | 2022-11-10 13:30 | WPDANLDPN2 ---
Anes-Prog Note L&D Date/Time: 11/10/22 13:30 Comfortable throughout: labor and delivery Neuraxial method: epidural Epidural/Spinal procedure site: clean & non-tender Neuro status: Neuro function grossly intact. Cardiovascular status: normal Respiratory status: normal Airway patency: baseline Mental status: baseline Post-Op hydration status: normal Vital Signs: Last Vital Signs Temp 98.2 F 11/10/22 08:05 Pulse 65 11/10/22 08:05 Resp 18 11/10/22 08:05 BP 110/68 11/10/22 08:05 Pulse Ox 100 11/10/22 08:05 O2 Del Method Room Air 11/09/22 19:41 Pain score (VAS): 0 I/O: Intake & Output 11/09/22 11/10/22 11/10/22 23:59 07:59 15:59 Intake Total 240 Balance 240 Post-procedural complaints: none Patient feedback: Patient satisfied with anesthetic care.
[2022-11-10] MEDS: WITCH HAZEL 40 PADS 1 PAD TOPICAL (17:29)
[2022-11-10 20:00] VITALS: BP 108/60; PULSE 71; RESP 18; TEMP 36.4; O2SAT 99
--- NOTE | 2022-11-11 07:29 | PM.OBPNVD ---
OB - PN: Subj Subjective Date/time seen: 11/11/22 07:29 s/p vaginal delivery day 2 Doing well iron infusion today at 0900 d/c home OB - PN: Obj Data Labs 11/10/22 04:10 11/09/22 05:29 OB - PN A/P Plan day: 2 Plan: routine care and discharge home Time Spent With Patient Time: Total time spent is greater than 50% in coordination of care (as documented) at patient's floor/unit and/or counseling patient: Review of Systems Review of Systems: All systems reviewed & are unremarkable except as noted in HPI and below Exam Const: General: cooperative and healthy appearing Resp: Effort & Inspection: normal respiratory effort Cardio: Rate: regular rate Rhythm: regular rhythm GI: Inspection: normal to inspection Other: soft Skin: General skin exam: normal color and no rashes or lesions noted Extrem: Right lower extremity: normal to inspection Left lower extremity: normal to inspection
--- NOTE | 2022-11-11 07:49 | P.DS_ITS ---
DS: Admitting Diagnosis Discharge Date 11/11/22 Admitting Diagnosis IOL, GDM DS: Discharge Diagnosis Discharge Diagnosis (1) Vaginal delivery: Code(s): O80 - Encounter for full-term uncomplicated delivery Status: Acute OB - DS: Summary OB Procedures : None OB Procedures Intrapartum: Spontaneous Vag Delivery OB Procedures: : None Time Spent with Patient Time attestation: Total time spent providing and/or coordinating discharge services: Discharge Plan Discharge Attending physician on discharge: Mabel Santana Discharging Clinician: Ning Rubio Patient Disposition: Home, Self-Care Activity: pelvic rest Diet: regular Patient Instructions: Antibiotic Form, How to Stop Smoking (DC) Stand Alone Forms: General Discharge Information Follow-up/Referrals: Ning Rubio, IRISHM [Certified Nurse Ssn/Ssbn Assistant Navigator] - 4 Weeks Discharge Medications: New ibuprofen 600 mg Tablet 600 mg PO Q6H PRN (Reason: Cramping) Qty: 30 0RF ferrous sulfate [FeroSul] 325 mg (65 mg iron) tablet 325 mg PO DAILY Qty: 30 0RF Continued prenat.vits,zeke,trv-qswp-oftoo Tablet 1 tablet PO DAILY Date of admission: 11/09/22 05:01 Primary Care Provider: PHYSICIAN,COUNSELOR SUPERVISOR Admitting Provider: Ruth Grullon Attending physician on admission: Ruth Grullon Condition: Stable
[2022-11-11 08:00] VITALS: BP 112/66; PULSE 81; RESP 16; TEMP 36.6; O2SAT 99
[2022-11-11] MEDS: DOCUSATE SODIUM 100 MG CAPSULE PO (09:41)
[2022-11-11] MEDS: MULTIVIT/MIN/PREN/FOL AC/IRON TABLET 1 TAB PO (09:41)
[2022-11-11] MEDS: IBUPROFEN 600 MG TABLET PO (09:41)
[2022-11-11] MEDS: IRON SUCROSE COMPLEX 200 MG in SODIUM CHLORIDE 0.9% IV 50 ML 120 MG IVPB (09:42)
--- NOTE | 2022-11-11 11:14 | PC.NURSE ---
Patient was given the opportunity to view the discharge video Mother & Baby Care, The First Two Weeks and to ask questions. Patient declined viewing the video and has been given the mother/baby guide for home reference.
--- NOTE | 2022-11-11 13:10 | PC.NURSE ---
[phone] Mother led the conversation with her experience and plan to feed her so far and her ability to independently latch optimally without discomfort. Mother is still their 2.5 year old child only at night. Reminded parents to use good handwashing technique to prevent infection and to offer the breast frequently to the first. Mother is feeding appropriately for growth of infant and understands stimulating to eat if needed. has had appropriate feedings in the last 24 hours meets the outcomes for weight, output and jaundice at this time. Mother states she is confident to continue effectively breastfeed her at home, when to call for assistance and denies any additional assistance or education at this time. Reinforced understanding of milk production, transition of milk, signs of adequate intake, transition of stool, prevention/relief of engorgement, responsive watching for feeding cues, the different methods of stimulating infant to breastfeed 2-3 hours after the start of the last feeding, community resources, medication information reviewed per [facility] and when to call a provider using the resource of the mom and baby guide. Mother voiced understanding of the education shared. Reported to the primary RN.
[2022-11-13 11:25] VITALS: BP 114/75; PULSE 78; RESP 20; TEMP 37.1; O2SAT 100
== END 2022-11-11 14:05 | disposition home or self-care (01) | DRG 807 ==
LOC: ANHLDR 05:05 → ANHOB2 15:15
PROVIDERS: Advanced Practice Midwife; Admitting Provider Obstetrics & Gynecology; Visit Provider Obstetrics & Gynecology
DX: O24.429 Gestational diabetes mellitus in childbirth, unspecified control (principal); Z37.0 Single live birth; O99.334 Smoking (tobacco) complicating childbirth; F17.290 Nicotine dependence, other tobacco product, uncomplicated; O99.02 Anemia complicating childbirth; D64.9 Anemia, unspecified; Z3A.38 38 weeks gestation of pregnancy; O99.344 Other mental disorders complicating childbirth; F41.9 Anxiety disorder, unspecified
CPT/HCPCS: 36415; 80053; 82948; 85014; 85018; 85025; 86592; 86850; 86900; 86901; A9270; J1756; J2590; J2795; J7120